=== PATIENT | male | born 1970 | race Caucasian/White ===

== ENCOUNTER 2016-05-21 10:28 | Emergency (ER) | payer OTHER ==
[2016-05-21 10:45] VITALS: BP 147/97
[2016-05-21 11:03] LABS: Hematocrit 43.7 % (42.0-52.0); Hemoglobin 15.3 gm/dL (13.5-18.0); Mean Cell Volume 90.5 fl (78-100); Mean Corpuscular Hemoglobin 31.7 pg (27-31); Neutrophil # 3.9 K/mm3 (1.3-6.0); Neutrophil % 64.9 % (42-75.0); Platelet Count 225 K/mm3 (150-450); Red Blood Count 4.83 M/mm3 (4.7-6.0); Red Cell Distribution Width 12.7 % (11.5-14.0)
[2016-05-21 11:17] LABS: Albumin * 3.9 gm/dl (3.4-5.0); Anion Gap 13.8 mmol/L (6.8-13.8); Bilirubin, Total 0.5 mg/dL (0.0-1.1); Ca. Corrected For Albumin 8.6 mg/dL (8.4-10.2); Calcium * 8.8 mg/dL (7.9-10.9); Carbon Dioxide 25.3 mmol/L (24-32.6); Potassium 4.1 mmol/L (3.4-4.6); Total Protein 7.3 gm/dL (6.2-8.2)
--- OUTSIDE RECORDS SUMMARY | 2016-05-21 11:39 | XMS REPORT | Continuity of Care Document ---
:1970 Author Organization [facility] ([facility]) Address [address] [place] [address] Phone [phone] Care Team Providers Name Role Phone [phone], Need To Check Primary Care Provider Unavailable Source Comments This disclosure is being made pursuant to the Care Everywhere program, applicable federal and state laws, and may not contain all informaitonavailable regarding this patient.[facility] ([facility]) Active Allergies and Adverse Reactions No Known Allergies Current Medications No known medications Active Problems Problem Noted Date 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
--- NOTE | 2016-05-21 11:48 | ERNOTE ---
Medical Problem HPI - General Chief Complaint: General Assessment Time Seen by Provider: 05/21/16 11:08 Source: patient Exam Limitations: no limitations - Immun/Allergies/Home Medications Immunizations: IMMUNIZATION HX Immunizations Up to Date Yes History of Influenza Vaccine No Hx Pneumococcal Vaccination No Allergies/Adverse Reactions: Allergies oxycodone Adverse Reaction (Verified 05/21/16 10:51) Nausea Home Medications: HOME MEDICATIONS LORazepam [Ativan] 0.5 mg PO TID PRN #30 tablet 05/21/16 [Last Taken Unknown] - History of Present History Timing: intermittent Severity: moderate Modifying Factors - (Worsens): Present: other - stress at work Review of Systems - Review of Systems Constitutional: Present: See HPI EYE: Present: no symptoms reported ENT: Present: no symptoms reported Respiratory: Present: no symptoms reported Cardiology: Present: no symptoms reported Gastrointestinal/Abdominal: Present: no symptoms reported Genitourinary: Present: no symptoms reported Musculoskeletal: Present: no symptoms reported Skin: Present: no symptoms reported Neurological: Present: no symptoms reported Endocrine: Present: no symptoms reported Hematologic/Lymphatic: Present: no symptoms reported Psych: Present: anxiety - Patient's Past Medical History Patient History - Medical: No pertinent hx Patient History - Cardiac/Respiratory: No pertinent hx Patient History - Cancer: No Hx of Cancer Patient History - Surgical Procedures: Appendectomy Patient History - Other: None - Social History Living Situations: home Psych History: No pertinent hx Smoking Status: Current every day smoker Alcohol Use: none Drug Use: none - Immunizations Immunizations Up to Date: Yes Hx Pneumococcal Vaccination: No History of Influenza Vaccine: No Physical Exam - Physical Exam General Appearance: Present: wd/wn, alert, no apparent distress Eye Exam: Normal inspection: bilateral, PERRL: bilateral Ears, Nose, Throat: Present: normal ENT inspection, H, normal pharynx Neck: Present: normal inspection, nontender Respiratory: Present: no respiratory distress, normal breath sounds, no accessory muscle use, chest nontender, lungs clear Cardiovascular/Chest: Present: regular rate, rhythm, no murmur, normal peripheral pulses Gastrointestinal/Abdominal: Present: normal bowel sounds, nontender, nondistended, soft, no organomegaly Rectal Exam: Present: deferred Back Exam: Present: normal inspection, normal range of motion Extremity Exam: Present: normal inspection, non-tender, no edema, normal range of motion Neurological Exam: Present: alert, oriented, normal mood/affect Skin Exam: Present: normal color, warm/dry Lymphatic Exam: Present: no adenopathy ED Progress - Results and Orders Patient's Lab Results:: I have reviewed the patient's lab results. - Vital Signs Patient's Vital Signs:: I have reviewed the patient's vital signs. Vital Signs: Vital Signs 05/21/16 10:36 Temperature 36.5 C Pulse Rate 79 Respiratory 16 Rate Blood Pressure 147/97 O2 Sat by Pulse 99 Oximetry - Progress/Reassessment Chief Complaint: General Assessment Plan - Plan Plan: I suspect the patient is having an acute stress reaction from a bradycardia of stressors at his workplace. His been self-medicating to a certain degree with alcohol drinking upwards to 4-6 beers at night when needed. I will add 0.5 mg of Ativan by mouth twice a day when necessary for stress and will try to see if we can wean him off some of the alcohol and tests whether or not that provides him with some measure of relief. Departure - Departure Clinical Impression: Acute stress reaction Disposition: Home self-care Condition: Good Instructions: Panic Attacks, [id number] Prescriptions: LORazepam [Ativan] 0.5 mg PO TID PRN #30 tablet PRN Reason: Anxiety
== END 2016-05-21 11:56 | disposition home or self-care (01) ==
LOC: ER 10:28
DX: F43.0 Acute stress reaction (principal); Z72.0 Tobacco use

== ENCOUNTER 2016-08-07 12:58 | Emergency (ER) | payer OTHER ==
[2016-08-07 12:59] VITALS: BP 147/97
[2016-08-07] MEDS ORDERED: DIPHTH,PERTUSS(ACELL),TET VAC 0.5 ML VIAL IM ONE ×2 (13:35→13:40)
--- OUTSIDE RECORDS SUMMARY | 2016-08-07 14:02 | XMS REPORT | Continuity of Care Document ---
:1970 Author Organization ([facility]) Address [address] [place] [address] Phone [phone] Care Team Providers Name Role Phone [phone], Need To Check Primary Care Provider Unavailable Source Comments This disclosure is being made pursuant to the Care Everywhere program, applicable federal and state laws, and may not contain all informaitonavailable regarding this patient. 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
--- NOTE | 2016-08-07 14:18 | ERNOTE ---
Medical Problem HPI - Narrative Date of Service: 08/07/16 - General Chief Complaint: General Assessment Time Seen by Provider: 08/07/16 13:29 Source: patient Exam Limitations: no limitations - Immun/Allergies/Home Medications Immunizations: IMMUNIZATION HX Immunizations Up to Date No History of Influenza Vaccine No Hx Pneumococcal Vaccination No Allergies/Adverse Reactions: Allergies oxycodone Adverse Reaction (Verified 08/07/16 13:19) Nausea Home Medications: HOME MEDICATIONS Cephalexin Monohydrate [Keflex] 500 mg PO QID #40 cap 08/07/16 [Last Taken Unknown] NK [No Home Medication] 08/07/16 [Last Taken Unknown] - History of Present History Narrative: patient stepped on nail yesterday. nail went through shoe Timing: constant Severity: mild Modifying Factors - (Improves): Present: cold therapy Modifying Factors - (Worsens): Present: movement Review of Systems - Review of Systems Constitutional: Present: no symptoms reported EYE: Present: no symptoms reported ENT: Present: no symptoms reported Respiratory: Present: no symptoms reported Cardiology: Present: no symptoms reported Gastrointestinal/Abdominal: Present: no symptoms reported Genitourinary: Present: no symptoms reported Musculoskeletal: Present: other - pain and swelling on bottom of mid foot Skin: Present: no symptoms reported Neurological: Present: no symptoms reported Endocrine: Present: no symptoms reported Hematologic/Lymphatic: Present: no symptoms reported Psych: Present: no symptoms reported All Other Systems: All systems neg except as marked - Patient's Past Medical History Patient History - Medical: No pertinent hx Patient History - Cardiac/Respiratory: No pertinent hx Patient History - Cancer: No Hx of Cancer Patient History - Surgical Procedures: Appendectomy Patient History - Other: None - Family History Family History:: no untoward family reactions to anesthesia, no familial bleeding tendencies, no family history of clotting disorders, no family history of premature - Social History Living Situations: spouse Psych History: No pertinent hx Smoking Status: Current every day smoker Have you smoked in the past 12 months: Yes Do you dip or chew tobacco: No Patient requests Smoking Cessation Consult: No Initiate information on Smoking Cessation: No Alcohol Use: none Drug Use: none - Immunizations Immunizations Up to Date: No Hx Pneumococcal Vaccination: No History of Influenza Vaccine: No Physical Exam - Physical Exam Narrative: patient alert and in no acute distress General Appearance: Present: alert, mild distress Eye Exam: Normal inspection: bilateral, PERRL: bilateral, EOMI: bilateral Ears, Nose, Throat: Present: normal ENT inspection Neck: Present: normal inspection, nontender Respiratory: Present: no respiratory distress, normal breath sounds, no accessory muscle use, chest nontender, lungs clear Cardiovascular/Chest: Present: regular rate, rhythm, no murmur, normal peripheral pulses Peripheral Pulses: N=norm/S=strong/W=weak/B=bound/A=absent: Carotid (R): Normal , Carotid (L): Normal, Radial (R): Normal, Radial (L): Normal, Femoral (R): Normal, Femoral (L): Normal, Dorsalis-pedis (R): Normal, Dorsalis-pedis (L): Normal Gastrointestinal/Abdominal: Present: normal bowel sounds, nontender, nondistended, soft, no organomegaly Back Exam: Present: normal inspection, normal range of motion, no CVA tenderness Extremity Exam: Present: other - puncture to plantar surface of left mid-foot small amount of erythema present Neurological Exam: Present: alert, oriented, normal mood/affect, no motor/ sensory deficits DTR: N=norm/NB=norm/brisk/A=abs/DD=dull/dimin/HC=hyperactive: Bicep (R): Normal , Bicep (L): Normal, Tricep (R): Normal, Tricep (L): Normal, Knee (R): Normal, Knee (L): Normal, Ankle (R): Normal, Ankle (L): Normal Skin Exam: Present: normal color, warm/dry Lymphatic Exam: Present: no adenopathy ED Progress - Vital Signs Patient's Vital Signs:: I have reviewed the patient's vital signs. - no foreign body present per radiologist Vital Signs: Vital Signs 08/07/16 13:14 Temperature 36.7 C Pulse Rate 93 Respiratory 18 Rate O2 Sat by Pulse 98 Oximetry - X-Ray X-Ray #1 X-Ray: foot Interpretation: Reviewed by Luisa foss w/ radiologist - Progress/Reassessment Chief Complaint: General Assessment Progress:: Pain free at discharge Departure - Departure Clinical Impression: Puncture wound Disposition: Home self-care Condition: Fair Instructions: How to Change Your Dressing, [id number], Stab Wound Prescriptions: Cephalexin Monohydrate [Keflex] 500 mg PO QID #40 cap
== END 2016-08-07 14:23 | disposition home or self-care (01) ==
LOC: ER 12:58
DX: S91.332A Puncture wound without foreign body, left foot, initial encounter (principal); X58.XXXA Exposure to other specified factors, initial encounter; Y93.9 Activity, unspecified; Y92.9 Unspecified place or not applicable; Z23 Encounter for immunization